=== PATIENT | female | born 1990 | race Caucasian/White ===

== ENCOUNTER 2021-11-14 10:25 | Emergency (ER) | payer OTHER ==
[~2021-11-14] VITALS: Ht 162.6 cm; Wt 79.5 kg
[2021-11-14] MEDS ORDERED: IV NORMAL SALINE 1000ML BAG 1,000 ML IV ONE (11:15)
[2021-11-14] MEDS ORDERED: DEXAMETHASONE SOD PHOS 20 MG/5 ML VIAL. IV ONE (11:15)
[2021-11-14] MEDS ORDERED: ONDANSETRON PF 4 MG/2 ML VIAL. IVP ONE (11:15)
[2021-11-14] MEDS ORDERED: PROCHLORPERAZINE 10 MG/2 ML VIAL. IV ONE (11:15)
[2021-11-14 11:43] LABS: BARBITURATES NEG (NEG); BENZODIAZEPINES NEG (NEG); CANNABINOIDS NEG (NEG); COCAINE NEG (NEG); METHADONE NEG (NEG); OPIATES NEG (NEG); PHENCYCLIDINE NEG (NEG)
[2021-11-14 11:53] LABS: AMPHETAMINE/METHAMPHETAMINE NEG (NEG)
[2021-11-14 12:17] LABS: BASO % 1 % (0-3); EOS # 0.1 x10^3/uL (0.0-0.7); EOS % 1 % (0-3); HEMATOCRIT 38.3 % (36.0-47.0); HEMOGLOBIN 13.2 g/dL (12.0-15.5); LYMPH # 1.2 x10^3/uL (1.0-4.8); LYMPH % 31 % (24-48); MEAN CORPUSCULAR HEMOGLOBIN 28 pg (25-35); MEAN CORPUSCULAR HGB CONC 35 g/dL (31-37); MEAN CORPUSCULAR VOLUME 81 fL (79-100); MONO # 0.5 x10^3/uL (0.0-1.1); MONO % 12 % (0-9); NEUT # 2.2 x10^3/uL (1.8-7.7); NEUT % 55 % (31-73); PLATELET COUNT 181 x10^3/uL (140-400); RED BLOOD COUNT 4.73 x10^6/uL (3.50-5.40); RED CELL DISTRIBUTION WIDTH 14.1 % (11.5-14.5)
[2021-11-14 12:32] LABS: CREATININE 0.6 mg/dL (0.6-1.0); GFR 117.4
[2021-11-14 12:37] LABS: ALBUMIN 3.7 g/dL (3.4-5.0); TOTAL BILIRUBIN 0.4 mg/dL (0.2-1.0); TOTAL PROTEIN 7.5 g/dL (6.4-8.2)
[2021-11-14] MEDS ORDERED: IOHEXOL 300 MG/ML 100ML VIAL. IV ONE (12:45)
[2021-11-14] MEDS ORDERED: CONTRAST GIVEN. MC PRN (12:45)
--- NOTE | 2021-11-14 13:45 | RAD ---
Exam Date: 11/14/2021 12:[address] HEAD/BRAIN WO, CTA HEAD AND NECK W/WO CONTRAST Indication: Reason: head pain / Spl. Instructions: / History: . TECHNIQUE: Head CT was performed without intravenous contrast. One or more of the following dose re duction techniques were utilized: *Automated exposure control (AEC) *Adjustment of mA and/or kV according to patient size *Use of iterative reconstruction technique *CT scan done according to ALARA, or ALARA/IMAGE GENTLY FINDINGS: The ventricles and sulci are normal for the patient's stated age. There is no evidence of acute int racranial hemorrhage, extra-axial collection, mass effect, midline shift, or acute territorial infarc t. No lesion of the skull base or the calvarium is seen. The visualized paranasal sinuses, mastoid ai r cells and orbits are normal in appearance. IMPRESSION: No evidence for acute intracranial abnormality. Exam Date: 11/14/2021 12:[address] HEAD/BRAIN WO, CTA HEAD AND NECK W/WO CONTRAST Indication: Reason: head pain / Spl. Instructions: / History: . TECHNIQUE: CT angiogram of the head was performed before and following the administration of nonionic intravenous contrast. Three-dimensional maximal intensity projection reformatted images and source i mages were created on an independent workstation and reviewed to assist with clinical management. O ne or more of the following dose reduction techniques were utilized: *Automated exposure control (AEC) *Adjustment of mA and/or kV according to patient size *Use of iterative reconstruction technique *CT scan done according to ALARA, or ALARA/IMAGE GENTLY FINDINGS: There is suboptimal opacification of the arterial structures due to bolus timing, with the venous str uctures opacified significantly. The left A1 segment appears hypoplastic. The left A2 segment is patent and supplied by the anterior communicating artery. There is diffuse narrowing of the intracranial left intracranial internal carotid artery, nonspecific . The distal vertebral, basilar, distal internal carotid, and proximal anterior/posterior/middle cerebr al arteries are otherwise patent. No occlusive lesion, aneurysm, or arteriovenous malformation identi fied. The ventricles and sulci are normal for the patient's stated age. There is no evidence of acute int racranial hemorrhage, extra-axial collection, mass effect, midline shift, or acute territorial infarc t. No lesion of the skull base or the calvarium is seen. The visualized paranasal sinuses, mastoid ai r cells and orbits are normal in appearance. IMPRESSION: Suboptimal bolus timing limits evaluation of the arterial structures. There is diffuse narrowing of the left intracranial internal carotid artery which is nonspecific but could be chronic, and is suboptimally evaluated due to poor bolus timing. No definite large vessel o cclusion is seen. Consider short interval follow-up CTA examination for more definitive evaluation i f clinically indicated. Left A1 segment appears hypoplastic. Left A2 segment is patent and supplied by the anterior to indic ating artery. No definite evidence of large vessel occlusion. Exam Date: 11/14/2021 12:[address] HEAD/BRAIN WO, CTA HEAD AND NECK W/WO CONTRAST Indication: Reason: head pain / Spl. Instructions: / History: Technique: CT angiogram of the neck was performed before and following the administration of nonionic intravenous contrast. Three-dimensional maximum intensity projection reformatted images were creat ed on an independent workstation and reviewed along with source images to assist with clinical manage ment. One or more of the following dose reduction techniques were utilized: *Automated exposure control (AEC) *Adjustment of mA and/or kV according to patient size *Use of iterative reconstruction technique *CT scan done according to ALARA, or ALARA/IMAGE GENTLY Findings: There is suboptimal opacification of the arterial structures due to bolus timing, with the venous str uctures opacified significantly. There is diffuse narrowing of the left internal carotid artery which is nonspecific but could be support director ancelmo, and is suboptimally evaluated due to poor bolus timing. No definite large vessel occlusion is s een. Examination of the aortic arch demonstrates normal origins of the right brachiocephalic, left common carotid and left subclavian arteries. The origin of the right common carotid artery is normal. The co mmon carotid and external carotid arteries, as well as the carotid bifurcations, are normal bilateral ly. Right internal carotid artery is normal. The vertebral arteries are normal bilaterally. No def inite evidence of large vessel occlusion, aneurysmal dilatation, or dissection in the visualized bailey alonzo of the neck. Impression: There is diffuse narrowing of the left internal carotid artery which is nonspecific but could be support director ancelmo, and is suboptimally evaluated due to poor bolus timing. No definite large vessel occlusion is s een. Consider short interval follow-up CTA examination for more definitive evaluation if clinically indicated. No definite evidence of large vessel occlusion. Note: Stenosis was evaluated using NASCET criteria. Electronically signed by: Anselmo Hart MD (11/14/2021 1:42 PM) [facility]
--- NOTE | 2021-11-14 13:51 | PHYS DOC ---
Past Medical History Past Surgical History: No Surgical History Smoking Status: Never Smoker Alcohol Use: Rarely General Adult EDM: Chief Complaint: HEADACHE HPI: HPI: Patient is a 31 year-old female patient presented to the ED today complaining of a 4 out of 10 stabbing right posterior head pain, symptoms began yesterday. Patient denies anything specifically exacerbating or relieving her symptoms. Denies any nausea, vomiting. She informed the nurse the pain was radiating to her neck, when asked about this, she denied. She states she has had similar pain before " as long as I can remember". She states nobody has worked her up for this headaches Review of Systems: Review of Systems: Constitutional: Denies fever or chills. [] Eyes: Denies change in visual acuity. [] HENT: Denies nasal congestion or sore throat. [] Respiratory: Denies cough or shortness of breath. [] Cardiovascular: Denies chest pain or edema. [] GI: Denies abdominal pain, nausea, vomiting, bloody stools or diarrhea. [] : Denies dysuria. [] Musculoskeletal: Denies back pain or joint pain. [] Integument: Denies rash. [] Neurologic: Reports headache, denies focal weakness or sensory changes. [] Psychiatric: Denies depression or anxiety. [] Heart Score: C/O Chest Pain: N/A Risk Factors: Risk Factors: DM, Current or recent (<one month) smoker, HTN, HLP, family history of CAD, obesity. Risk Scores: Score 0 - 3: 2.5% MACE over next 6 weeks - Discharge Home Score 4 - 6: 20.3% MACE over next 6 weeks - Admit for Clinical Observation Score 7 - 10: 72.7% MACE over next 6 weeks - Early Invasive Strategies Current Medications: Current Medications Medications (Trade) Dose Ordered Sig/Earl Start Time Stop Time Status Last Admin Dose Admin Dexamethasone Sodium Phosphate (Decadron) 10 mg 1X ONCE 11/14/21 11:15 11/14/21 11:16 DC 11/14/21 11:49 10 MG Info (CONTRAST GIVEN -- Rx MONITORING) 1 each PRN DAILY PRN 11/14/21 12:45 11/16/21 12:44 Iohexol (Omnipaque 300 Mg/ml) 75 ml 1X ONCE 11/14/21 12:45 11/14/21 12:47 DC 11/14/21 13:03 75 ML Ondansetron HCl (Zofran) 4 mg 1X ONCE 11/14/21 11:15 11/14/21 11:16 DC 11/14/21 11:46 4 MG Prochlorperazine Edisylate (Compazine) 10 mg 1X ONCE 11/14/21 11:15 11/14/21 11:16 DC 11/14/21 11:53 10 MG Sodium Chloride 1,000 ml @ 1,000 mls/hr 1X ONCE 11/14/21 11:15 11/14/21 12:14 DC 11/14/21 11:44 1,000 MLS/HR Allergies: Allergies: Allergies Coded Allergies Type Severity Reaction Last Updated Verified codeine Adverse Reaction Intermediate "it makes my body of fire from the inside out", vomiting 11/14/21 Yes hydrocodone Adverse Reaction Intermediate "it makes my body of fire from the inside out", vomiting 11/14/21 Yes oxycodone Adverse Reaction Intermediate "it makes my body of fire from the inside out", vomiting 11/14/21 Yes tramadol Adverse Reaction Intermediate "it makes my body of fire from the inside out", vomiting 11/14/21 Yes acetaminophen Adverse Reaction Unknown "it makes my body of fire from the inside out", vomiting 11/14/21 Yes Physical Exam: PE: Constitutional: Well developed, well nourished, no acute distress, non-toxic appearance. [] HENT: Normocephalic, atraumatic, bilateral external ears normal, oropharynx moist, no oral exudates, nose normal. [] Eyes: PERRLA, EOMI, conjunctiva normal, no discharge. [] Neck: Normal range of motion, no tenderness, supple, no stridor. [] Cardiovascular:Heart rate regular rhythm, no murmur [] Lungs & Thorax: Bilateral breath sounds clear to auscultation [] Abdomen: Bowel sounds normal, soft, no tenderness, no masses, no pulsatile masses. [] Skin: Warm, dry, no erythema, no rash. [] Back: No tenderness, no CVA tenderness. [] Extremities: No tenderness, no cyanosis, no clubbing, ROM intact, no edema. [] Neurologic: Alert and oriented X 3, normal motor function, normal sensory function, no focal deficits noted. Cranial nerves II through XII intact Psychologic: Affect normal, judgement normal, mood normal. [] Current Patient Data: Labs: Laboratory Tests Test 11/14/21 11:15 11/14/21 11:25 11/14/21 11:35 Urine Opiates Screen Neg (NEG) Urine Methadone Screen Neg (NEG) Urine Barbiturates Neg (NEG) Urine Phencyclidine Screen Neg (NEG) Urine Amphetamine/Methamphetamine Neg (NEG) Urine Benzodiazepines Screen Neg (NEG) Urine Cocaine Screen Neg (NEG) Urine Cannabinoids Screen Neg (NEG) Urine Ethyl Alcohol Neg (NEG) POC Urine HCG, Qualitative Hcg negative (Negative) White Blood Count 4.0 x10^3/uL (4.0-11.0) Red Blood Count 4.73 x10^6/uL (3.50-5.40) Hemoglobin 13.2 g/dL (12.0-15.5) Hematocrit 38.3 % (36.0-47.0) Mean Corpuscular Volume 81 fL (79-100) Mean Corpuscular Hemoglobin 28 pg (25-35) Mean Corpuscular Hemoglobin Concent 35 g/dL (31-37) Red Cell Distribution Width 14.1 % (11.5-14.5) Platelet Count 181 x10^3/uL (140-400) Neutrophils (%) (Auto) 55 % (31-73) Lymphocytes (%) (Auto) 31 % (24-48) Monocytes (%) (Auto) 12 % (0-9) H Eosinophils (%) (Auto) 1 % (0-3) Basophils (%) (Auto) 1 % (0-3) Neutrophils # (Auto) 2.2 x10^3/uL (1.8-7.7) Lymphocytes # (Auto) 1.2 x10^3/uL (1.0-4.8) Monocytes # (Auto) 0.5 x10^3/uL (0.0-1.1) Eosinophils # (Auto) 0.1 x10^3/uL (0.0-0.7) Basophils # (Auto) 0.0 x10^3/uL (0.0-0.2) Sodium Level 141 mmol/L (136-145) Potassium Level 4.0 mmol/L (3.5-5.1) Chloride Level 106 mmol/L (98-107) Carbon Dioxide Level 26 mmol/L (21-32) Anion Gap 9 (6-14) Blood Urea Nitrogen 12 mg/dL (7-20) Creatinine 0.6 mg/dL (0.6-1.0) Estimated GFR (Cockcroft-Gault) 117.4 BUN/Creatinine Ratio 20 (6-20) Glucose Level 87 mg/dL (70-99) Calcium Level 8.0 mg/dL (8.5-10.1) L Total Bilirubin 0.4 mg/dL (0.2-1.0) Aspartate Amino Transferase (AST) 19 U/L (15-37) Alanine Aminotransferase (ALT) 24 U/L (14-59) Alkaline Phosphatase 46 U/L (46-116) Total Protein 7.5 g/dL (6.4-8.2) Albumin 3.7 g/dL (3.4-5.0) Albumin/Globulin Ratio 1.0 (1.0-1.7) Laboratory Tests 11/14/21 11:35 Laboratory Tests 11/14/21 11:35 Vital Signs: Vital Signs Date Time Temp Pulse Resp B/P (MAP) Pulse Ox O2 Delivery O2 Flow Rate FiO2 11/14/21 11:58 102 20 122/66 (84) 98 Room Air 11/14/21 10:35 99.4 99.4 EKG: EKG: [] Radiology/Procedures: Radiology/Procedures: []PROCEDURE: CT HEAD WO CONTRAST Exam Date: 11/14/2021 12:[address] HEAD/BRAIN WO, CTA HEAD AND NECK W/WO CONTRAST Indication: Reason: head pain / Spl. Instructions: / History: . TECHNIQUE: Head CT was performed without intravenous contrast. One or more of the following dose reduction techniques were utilized: *Automated exposure control (AEC) *Adjustment of mA and/or kV according to patient size *Use of iterative reconstruction technique *CT scan done according to ALARA, or ALARA/IMAGE GENTLY FINDINGS: The ventricles and sulci are normal for the patient's stated age. There is no evidence of acute intracranial hemorrhage, extra-axial collection, mass effect, midline shift, or acute territorial infarct. No lesion of the skull base or the calvarium is seen. The visualized paranasal sinuses, mastoid air cells and orbits are normal in appearance. IMPRESSION: No evidence for acute intracranial abnormality. Exam Date: 11/14/2021 12:[address] HEAD/BRAIN WO, CTA HEAD AND NECK W/WO CONTRAST Indication: Reason: head pain / Spl. Instructions: / History: . TECHNIQUE: CT angiogram of the head was performed before and following the administration of nonionic intravenous contrast. Three-dimensional maximal intensity projection reformatted images and source images were created on an independent workstation and reviewed to assist with clinical management. One or more of the following dose reduction techniques were utilized: *Automated exposure control (AEC) *Adjustment of mA and/or kV according to patient size *Use of iterative reconstruction technique *CT scan done according to ALARA, or ALARA/IMAGE GENTLY FINDINGS: There is suboptimal opacification of the arterial structures due to bolus timing, with the venous structures opacified significantly. The left A1 segment appears hypoplastic. The left A2 segment is patent and supplied by the anterior communicating artery. There is diffuse narrowing of the intracranial left intracranial internal carotid artery, nonspecific. The distal vertebral, basilar, distal internal carotid, and proximal anterior/posterior/middle cerebral arteries are otherwise patent. No occlusive lesion, aneurysm, or arteriovenous malformation identified. The ventricles and sulci are normal for the patient's stated age. There is no evidence of acute intracranial hemorrhage, extra-axial collection, mass effect, midline shift, or acute territorial infarct. No lesion of the skull base or the calvarium is seen. The visualized paranasal sinuses, mastoid air cells and orbits are normal in appearance. IMPRESSION: Suboptimal bolus timing limits evaluation of the arterial structures. There is diffuse narrowing of the left intracranial internal carotid artery which is nonspecific but could be chronic, and is suboptimally evaluated due to poor bolus timing. No definite large vessel occlusion is seen. Consider short interval follow-up CTA examination for more definitive evaluation if clinically indicated. Left A1 segment appears hypoplastic. Left A2 segment is patent and supplied by the anterior to indicating artery. No definite evidence of large vessel occlusion. Exam Date: 11/14/2021 12:[address] HEAD/BRAIN WO, CTA HEAD AND NECK W/WO CONTRAST Indication: Reason: head pain / Spl. Instructions: / History: Technique: CT angiogram of the neck was performed before and following the administration of nonionic intravenous contrast. Three-dimensional maximum intensity projection reformatted images were created on an independent workstation and reviewed along with source images to assist with clinical management. One or more of the following dose reduction techniques were utilized: *Automated exposure control (AEC) *Adjustment of mA and/or kV according to patient size *Use of iterative reconstruction technique *CT scan done according to ALARA, or ALARA/IMAGE GENTLY Findings: There is suboptimal opacification of the arterial structures due to bolus timing, with the venous structures opacified significantly. There is diffuse narrowing of the left internal carotid artery which is nonspecific but could be chronic, and is suboptimally evaluated due to poor bolus timing. No definite large vessel occlusion is seen. Examination of the aortic arch demonstrates normal origins of the right brachiocephalic, left common carotid and left subclavian arteries. The origin of the right common carotid artery is normal. The common carotid and external carotid arteries, as well as the carotid bifurcations, are normal bilaterally. Right internal carotid artery is normal. The vertebral arteries are normal bilaterally. No definite evidence of large vessel occlusion, aneurysmal dilatation, or dissection in the visualized arteries of the neck. Impression: There is diffuse narrowing of the left internal carotid artery which is nonspecific but could be chronic, and is suboptimally evaluated due to poor bolus timing. No definite large vessel occlusion is seen. Consider short interval follow-up CTA examination for more definitive evaluation if clinically indicated. No definite evidence of large vessel occlusion. Note: Stenosis was evaluated using NASCET criteria. Electronically signed by: Esther Hart MD (11/14/2021 1:42 PM) [facility] DICTATED and SIGNED BY: ESTHER HART MD DATE: 11/14/21 [id number] 0 Course & Med Decision Making: Course & Med Decision Making Pertinent Labs and Imaging studies reviewed. (See chart for details) This is a 31-year-old female patient presented to the ED today complaining of a headache that began yesterday but reports she has had similar headaches before but has never been worked up for them. CBC, CMP, UDS negative. CT of the head is negative, CT angio negative. Patient was given Decadron, IV fluid and Compazine in the ED. Discharged home. Follow-up with PCP and neurologist provided. Sheryl Disclaimer: Sheryl Disclaimer: This electronic medical record was generated, in whole or in part, using a voice recognition dictation system. Departure Departure Impression: Primary Impression: Headache Qualified Codes: R51.9 - Headache, unspecified Disposition: HOME / SELF CARE / HOMELESS Condition: STABLE Referrals: NO PCP (PCP) SHAW CLIFFORD MD follow up in 1-2 weeks Patient Instructions: Headache, FAQs Additional Instructions: You were evaluated in the emergency room for headache. Please follow-up with the provided neurologist and primary care doctor in the next 1 to 2 weeks JOHN MYLES [employer] Nov 14, 2021 13:50
[2021-11-14 14:13] VITALS: BP 119/65
== END 2021-11-14 14:18 | disposition home or self-care (01) ==
LOC: ER 10:25
DX: R51.9 Headache, unspecified (principal)
CPT/HCPCS: 36415; 70450; 70496; 70498; 80053; 80307; 81025; 85025; 96361; 96374; 96375; 99285; J0780; J1100; J2405; J7030; Q9967